=== PATIENT | female | born 1955 | race Caucasian/White ===

== ENCOUNTER → 2020-03-10 | Outpatient (CLI) | payer OTHER ==
[~2020-03-10] MED LIST: OMNIPAQUE 350 MG/ML, 150 ML BOTTLE ONE
[2020-03-10 14:32] LABS: CREATININE 0.83 mg/dL (0.55-1.02)
== END | disposition home or self-care (01) ==
LOC: RAD 13:54
PROVIDERS: ATTEND Nurse Practitioner
DX: R31.0 Gross hematuria (principal)
CPT/HCPCS: 36415; 74178; 82565; Q9967